=== PATIENT | female | born 1955 | race Two or more races ===

== ENCOUNTER 2016-11-05 13:58 | Observation (INO) | payer MEDICAID ==
[~2016-11-05 13:58] MED LIST: ALLEGRA180 MG PO; ALLERGY PILL; ALPRAZOLAM0.5 MG PO; ALPRAZOLAM1 MG PO; ANTIVERT25 MG PO; BENADRYL25 MG; BENADRYL25 MG PO; BENEFIBER1 PKT PO; CLARITIN10 M2 PO; DITROPAN5 MG PO; HYDROCODON-ACE1 EACH PO; IBUPROFEN400 MG PO; MAALOX SUSPENSI30 ML PO; MEDROL4 MG/DOSE- PO; MIRALAX17 GM PO; NAPROSYN500 MG PO; NORCO 5/3251 TAB PO; VITAMINS; ZYRTEC10 M1 PO; ZYRTEC10 MG
[2016-11-05 14:37] LABS: BASO % 0.5 % (0-2); EOSINOPHIL ABSOLUTE COUNT 0.1 tho/cmm (0.0-0.7); HCT-HEMATOCRIT 43.5 % (34.0-49.0); HGB-HEMOGLOBIN 15.3 gm/dl (12.0-15.5); IMMATURE GRANULOCYTES ABSOLUTE 0.01 tho/cmm (0-0.03); IMMATURE GRANULOCYTES PERCENT 0.2 % (0-0.3); LYMPH % 24.3 % (20-45); LYMPH ABSOLUTE COUNT 1.4 tho/cmm (0.8-4.5); MCH (MEAN CORPUSCULAR HGB) 29.9 pg (28.0-32.0); MCHC MEAN CORPUSCULAR HGB CONC 35.2 % (32.0-36.0); MCV (MEAN CELL VOLUME) 85.1 fl (82.0-96.0); MEAN PLATELET VOLUME 10.5 cmc (9.4-12.4); MONO % 7.3 % (0-12); MONOCYTE ABSOLUTE COUNT 0.4 tho/cmm (0.0-1.2); NEUTROPHIL ABSOLUTE COUNT 3.9 tho/cmm (1.6-8.0); NEUTROPHIL-AUTOMATED 3.9 tho/cmm (1.6-8.0); NEUTROPHILS % 66.7 % (40-80); PLATELET COUNT 208 tho/cmm (150-450); RED BLOOD COUNT 5.11 mil/cmm (4.00-5.20); WHITE BLOOD COUNT 5.9 tho/cmm (4.0-10.0)
[2016-11-05 14:53] LABS: ANION GAP 12 mmol/L (0-20); BLOOD UREA NITROGEN 12 mg/dl (6-24); CALCIUM 10.3 mg/dl (8.5-10.5); CARBON DIOXIDE-VENOUS 23 mmol/L (22-32); CHLORIDE 111 mmol/l (96-110); CREATININE 0.78 mg/dl (0.50-1.10); GLUCOSE 111 mg/dL (70-110); POTASSIUM 3.7 mmol/L (3.7-5.1); SODIUM 142 mmol/L (135-145); eGFR VALUE FOR BLACK >90 mL/Min
[2016-11-05] MEDS ORDERED: VITAMIN D31000 UNI3 PO (17:45)
[2016-11-05] MEDS ORDERED: ARTIFICIAL TEAR15 M8 OP (17:46)
[2016-11-05] MEDS ORDERED: POLYETHYLENE G255 G1 PO (17:47)
[2016-11-05] MEDS ORDERED: BACLOFEN10 M1 PO (17:47)
[2016-11-05] MEDS ORDERED: LINZESS145 MC1 PO (17:48)
[2016-11-05] MEDS ORDERED: FLONASE ALLERG9.9 ML (17:48)
[2016-11-05] MEDS ORDERED: VENTOLIN HFA18 G2 PO (17:48)
[2016-11-05] MEDS ORDERED: PAZEO2.5 ML OP (17:48)
[2016-11-05] MEDS ORDERED: lantanoprost OP (17:49)
[2016-11-05] MEDS ORDERED: LIDOPATCH1 EAC1 TP (17:50)
[2016-11-05] MEDS ORDERED: COZAAR50 M1 PO (17:50)
[2016-11-05] MEDS ORDERED: FOLGARD TABLET1 EAC1 PO (17:50)
[2016-11-05] MEDS ORDERED: LIDOCAINE15 GM TOP (17:52)
[2016-11-05] MEDS ORDERED: PREMARIN30 GM OTHER (17:53)
[2016-11-05] MEDS ORDERED: ADRENALIN1 MG/1 M3 SC (17:53)
[2016-11-05] MEDS ORDERED: ASPIRIN81 M1 PO (17:53)
[2016-11-05] MEDS ORDERED: ALLERGY RELIEF10 M9 PO (17:54)
[2016-11-05] MEDS ORDERED: TOPAMAX50 M3 PO (17:54)
[2016-11-05] MEDS ORDERED: SEROQUEL50 M1 PO (17:55)
[2016-11-05] MEDS ORDERED: LEXAPRO20 M2 PO (17:56)
[2016-11-05] MEDS ORDERED: OMEPRAZOLE40 M2 PO (17:56)
[2016-11-05] MEDS ORDERED: MINIPRESS2 M1 PO (17:56)
[2016-11-05] MEDS ORDERED: SINGULAIR10 M1 PO (17:56)
[2016-11-05] MEDS ORDERED: HYDROXYZIN10 MG/5 M1 PO (17:57)
[2016-11-06] MEDS ORDERED: TENORMIN25 M1 PO (11:19)
[2016-11-06] MEDS ORDERED: PROTONIX40 M2 PO (11:25)
[2016-11-06] MEDS ORDERED: [UNRECOGNIZED DRUG - OTHER] PO (11:26)
[2016-11-06] MEDS ORDERED: FLONASE ALLERG9.9 ML (11:27)
== END 2016-11-06 13:35 ==
LOC: EDMED 13:58 → EMR2 17:31 → CAR1 18:28
PROVIDERS: Emergency Medicine; Physician Assistant; ADMIT Internal Medicine Cardiovascular Disease
DX: R07.9 Chest pain, unspecified (principal); I10 Essential (primary) hypertension; J45.909 Unspecified asthma, uncomplicated; Z86.010 Personal history of colon polyps; Z90.49 Acquired absence of other specified parts of digestive tract; Z90.710 Acquired absence of both cervix and uterus; Z98.890 Other specified postprocedural states; Z88.8 Allergy status to other drugs, medicaments and biological substances; Z79.899 Other long term (current) drug therapy; Z79.82 Long term (current) use of aspirin
CPT/HCPCS: A9500; C8929; G0378; G8978-GP-CH; G8979-GP-CH; G8980-GP-CH; J0280; J2270; J2405; J2785

== ENCOUNTER 2016-11-09 14:47 | Observation (INO) | payer MEDICAID ==
[~2016-11-09 14:47] MED LIST changes: +ADRENALIN1 MG/1 M3 SC; +ALLERGY RELIEF10 M9 PO; +ARTIFICIAL TEAR15 M8 OP; +ASPIRIN81 M1 PO; +BACLOFEN10 M1 PO; +COZAAR50 M1 PO; +FLONASE ALLERG9.9 ML; +FOLGARD TABLET1 EAC1 PO; +HYDROXYZIN10 MG/5 M1 PO; +LEXAPRO20 M2 PO; +LIDOCAINE15 GM TOP; +LIDOPATCH1 EAC1 TP; +LINZESS145 MC1 PO; +MINIPRESS2 M1 PO; +OMEPRAZOLE40 M2 PO; +PAZEO2.5 ML OP; +POLYETHYLENE G255 G1 PO; +PREMARIN30 GM OTHER; +PROTONIX40 M2 PO; +SEROQUEL50 M1 PO; +SINGULAIR10 M1 PO; +TENORMIN25 M1 PO; +TOPAMAX50 M3 PO; +VENTOLIN HFA18 G2 PO; +VITAMIN D31000 UNI3 PO; +[UNRECOGNIZED DRUG - OTHER] PO; +lantanoprost OP
[2016-11-09] MEDS ORDERED: PROTONIX40 M2 (15:03)
[2016-11-09 15:18] LABS: BASO % 0.2 % (0-2); EOS % 2.2 % (0-7); EOSINOPHIL ABSOLUTE COUNT 0.1 tho/cmm (0.0-0.7); HCT-HEMATOCRIT 40.8 % (34.0-49.0); HGB-HEMOGLOBIN 14.1 gm/dl (12.0-15.5); IMMATURE GRANULOCYTES ABSOLUTE 0.03 tho/cmm (0-0.03); IMMATURE GRANULOCYTES PERCENT 0.5 % (0-0.3); LYMPH % 29.4 % (20-45); LYMPH ABSOLUTE COUNT 1.7 tho/cmm (0.8-4.5); MCH (MEAN CORPUSCULAR HGB) 29.9 pg (28.0-32.0); MCHC MEAN CORPUSCULAR HGB CONC 34.6 % (32.0-36.0); MCV (MEAN CELL VOLUME) 86.4 fl (82.0-96.0); MEAN PLATELET VOLUME 10.5 cmc (9.4-12.4); MONO % 5.4 % (0-12); MONOCYTE ABSOLUTE COUNT 0.3 tho/cmm (0.0-1.2); NEUTROPHIL ABSOLUTE COUNT 3.7 tho/cmm (1.6-8.0); NEUTROPHIL-AUTOMATED 3.7 tho/cmm (1.6-8.0); NEUTROPHILS % 62.3 % (40-80); PLATELET COUNT 199 tho/cmm (150-450); RED BLOOD COUNT 4.72 mil/cmm (4.00-5.20); RED CELL DISTRIBUTION WIDTH 13.1 % (12.4-16.4); WHITE BLOOD COUNT 5.9 tho/cmm (4.0-10.0)
[2016-11-09 15:33] LABS: ALB/GLOB RATIO 0.9 (0.8-2.0); ALBUMIN 3.6 g/dl (3.5-5.0); ALKALINE PHOSPHATASE 86 U/L (33-138); ALT/SGPT 40 U/L (12-78); BILIRUBIN,TOTAL 0.4 mg/dl (0-1.5); BLOOD UREA NITROGEN 12 mg/dl (6-24); CALCIUM 9.4 mg/dl (8.5-10.5); CARBON DIOXIDE-VENOUS 23 mmol/L (22-32); CHLORIDE 110 mmol/l (96-110); CREATININE 0.99 mg/dl (0.50-1.10); GLUCOSE 122 mg/dL (70-110); LIPASE 287 U/L (73-393); SODIUM 144 mmol/L (135-145); eGFR VALUE FOR BLACK 72 mL/Min
[2016-11-09 15:34] LABS: ANION GAP 15 mmol/L (0-20); AST/SGOT 26 U/L (10-40); POTASSIUM 4.1 mmol/L (3.7-5.1)
[2016-11-09] MEDS ORDERED: COZAAR25 M1 PO (17:06)
== END 2016-11-10 10:35 ==
LOC: EDMED 14:47 → EMR2 17:59 → CAR1 20:09
PROVIDERS: Emergency Medicine; ADMIT Internal Medicine Clinical Cardiac Electrophysiology
DX: R07.89 Other chest pain (principal); I10 Essential (primary) hypertension; E66.9 Obesity, unspecified; J45.909 Unspecified asthma, uncomplicated; Z79.51 Long term (current) use of inhaled steroids; Z79.82 Long term (current) use of aspirin; Z79.899 Other long term (current) drug therapy; Z88.8 Allergy status to other drugs, medicaments and biological substances; Z90.49 Acquired absence of other specified parts of digestive tract; Z90.710 Acquired absence of both cervix and uterus; Z98.890 Other specified postprocedural states
CPT/HCPCS: G0378; J1885; J7030; Q9967